=== PATIENT | female | born 1965 | race Hispanic/Latino ===

== ENCOUNTER → 2018-05-06 | Day surgery (SDC) | payer MEDICARE ==
[2015-02-19 06:57] VITALS: BMI 22.4
[~2018-05-06] MED LIST: Lidocaine PF 2% (5 ml) Inj (For Cardiac Arrhy) ONE; Propofol 10 mg/ml Inj (20 ML) ONE; Sodium Chloride 0.9% 1,000 ML IV SCH
[2018-05-06 12:58] VITALS: RESP 16
[2018-05-06 13:24] VITALS: PULSE 83
[2018-05-06 14:44] VITALS: BP 143/85; TEMP 98; O2SAT 96
== END | disposition home or self-care (01) ==
LOC: ENDO 09:56
PROVIDERS: ATTEND Internal Medicine Gastroenterology
DX: Z12.11 Encounter for screening for malignant neoplasm of colon (principal); K63.89 Other specified diseases of intestine
CPT/HCPCS: 45378; 84703; J2704; J7030; J7040